=== PATIENT | male | born 1965 | race Caucasian/White ===

== ENCOUNTER 2025-10-01 08:14 | Inpatient (IN) | payer MEDICAID ==
[~2025-10-01] VITALS: Ht 165.1 cm; Wt 77.6 kg
[~2025-10-01 08:14] MED LIST: AMIT10TA13 PO; AMLO10TA80 PO; ASPI-1406 PO; ATOR-2 PO; CALC0.5C10 PO; CLOP75TA33 PO; GABA-1180 PO; HYDR100T11 PO; ISOS30TA91 PO; LEVO125T8 PO; METH-773 PO; NIFE90TA60 PO; SEVE800T8 MT; TELM80TA8 PO
[2025-10-01 09:02] LABS: BASOPHILS % 0.4 % (0.0-2.0); EOSINOPHILS % 0.2 % (0.0-5.0); HEMATOCRIT. 27.3 % (42.0-52.0); HEMOGLOBIN. 9.1 g/dL (14.0-18.0); LYMPHOCYTES % 7.5 % (20.0-50.0); MEAN PLATELET VOLUME 10.6 fl (7.4-10.4); MONOCYTES % 9.1 % (2.0-8.0); NEUTROPHILS % 82.8 % (40.0-76.0); PLATELET 84 x1000/uL (130-400); RED BLOOD CELL COUNT 2.70 mill/uL (4.7-6.1); RED CELL DISTRIBUTION WIDTH 17.4 % (11.6-14.6)
[2025-10-01] MEDS: DILTIAZEM HCL 5MG/ML 5ML VIAL IV ONE ×2 (09:05→09:45)
[2025-10-01] MEDS: ACETAMINOPHEN 325MG TABLET PO ONE (09:11)
[2025-10-01] MEDS: ONDANSETRON HCL 4MG/2ML INJ IV ONE (09:11)
[2025-10-01 09:26] LABS: UREA NITROGEN BLOOD 92 mg/dL (9-23)
[2025-10-01 09:27] LABS: PROTEIN TOTAL 6.6 g/dL (6.0-8.3)
[2025-10-01 09:28] LABS: ASPARTATE AMINOTRANSFERASE 51 IU/L (<34); BILIRUBIN DIRECT 0.2 mg/dL (<=3.0); BILIRUBIN TOTAL 0.4 mg/dL (0.1-1.0)
[2025-10-01] MEDS: DILTIAZEM HCL 60MG TABLET PO ONE (09:43)
[2025-10-01 09:58] LABS: CREATININE 11.4 mg/dL (0.6-1.3); TROPONIN I HIGH SENSITIVITY 2481 ng/L (3.0-53)
[2025-10-01] MEDS ORDERED: AZITHROMYCIN 500MG/250ML 250 ML IV STA (10:41)
[2025-10-01] MEDS: ENOXAPARIN 60MG/0.6ML SYR SUBCUT ONE (11:04)
[2025-10-01] MEDS: ASPIRIN 325MG TABLET PO ONE (11:05)
[2025-10-01] MEDS: CEFTRIAXONE 1GM/50ML 50 ML IV ONE (11:05)
[2025-10-01] MEDS: INSULIN REGULAR (HUMULIN R) 1000UNITS/10ML VIAL IV ONE (11:09)
[2025-10-01] MEDS: DEXTROSE 50% WATER 50ML SYRINGE IV ONE (11:11)
[2025-10-01] MEDS: AZITHROMYCIN 500MG/250ML 250 ML IV NR (12:23)
[2025-10-01 12:46] LABS: TROPONIN I HIGH SENSITIVITY 2579 ng/L (3.0-53)
[2025-10-01 15:21] LABS: HEPATITIS A AB IGM NEGATIVE (Negative)
[2025-10-01 15:22] LABS: HEPATITIS B CORE AB IGM NEGATIVE (Negative); HEPATITIS C AB NON REACTIVE (Neg) (Negative)
[2025-10-01 16:00] VITALS: BP 118/86; PULSE 61; RESP 18; TEMP 36.4; O2SAT 97
[2025-10-01] MEDS: IPRATROPIUM BROMIDE (0.02%) 0.5MG/2.5ML NEB HHN SCH (16:06)
[2025-10-01 18:40] VITALS: BP 105/75; RESP 18; TEMP 36.55848; O2SAT 97
[2025-10-01 20:00] VITALS: BP 121/68; PULSE 73; RESP 18; TEMP 36.6; TEMP 36.6404; O2SAT 94
[2025-10-01 23:30] VITALS: BP 121/75; PULSE 76; RESP 20; TEMP 36.61404; O2SAT 98
[2025-10-02] VITALS (14 sets, daily range): BP systolic 114–130; BP diastolic 69–75; PULSE 71–80; RESP 16–20; TEMP 36.2–36.9; O2SAT 94–98
[2025-10-02 08:04] LABS: BASOPHILS % 0.4 % (0.0-2.0); EOSINOPHILS % 3.7 % (0.0-5.0); HEMATOCRIT. 26.3 % (42.0-52.0); HEMOGLOBIN. 8.6 g/dL (14.0-18.0); LYMPHOCYTES % 8.1 % (20.0-50.0); MEAN PLATELET VOLUME 10.4 fl (7.4-10.4); MONOCYTES % 6.9 % (2.0-8.0); NEUTROPHILS % 80.9 % (40.0-76.0); PLATELET 89 x1000/uL (130-400); RED BLOOD CELL COUNT 2.63 mill/uL (4.7-6.1); RED CELL DISTRIBUTION WIDTH 16.9 % (11.6-14.6)
[2025-10-02 08:22] LABS: UREA NITROGEN BLOOD 60.0 mg/dL (9-23)
[2025-10-02] MEDS: SEVELAMER CARBONATE 800 MG TABLET PO SCH (08:43)
[2025-10-02] MEDS: ASPIRIN 81MG TABLET PO SCH (08:43)
[2025-10-02] MEDS: FOLIC ACID/VITAMIN B COMP W-C TABLET PO SCH (08:43)
[2025-10-02 09:19] LABS: CREATININE 7.9 mg/dL (0.6-1.3)
[2025-10-02 09:39] LABS: TROPONIN I HIGH SENSITIVITY 1908 ng/L (3.0-53)
[2025-10-02] MEDS ORDERED: CEFTRIAXONE 1GM/50ML 50 ML IV SCH (10:00)
[2025-10-02] MEDS ORDERED: NALOXONE HCL 0.4MG/ML VIAL IV PRN (10:15)
[2025-10-02] MEDS: CEFTRIAXONE 1GM/50ML 50 ML IV SCH (11:41)
[2025-10-02] MEDS: AZITHROMYCIN 500MG in D5W 250ML IV SCH (11:41)
[2025-10-02] MEDS ORDERED: AZITHROMYCIN 250 MG in DEXT 5% WATER 250 ML IV SCH (12:00)
[2025-10-02] MEDS: HYDROCODONE/ACETAMINOPHEN 5/325MG TABLET PO PRN (18:02)
[2025-10-02] MEDS: EPOETIN ALFA-EPBX 4,000 UNITS/ML VIAL SUBCUT SCH (20:50)
[2025-10-03] VITALS (17 sets, daily range): BP systolic 125–142; BP diastolic 69–82; PULSE 71–84; RESP 16–19; TEMP 36.2–36.9; O2SAT 91–100
[2025-10-04] VITALS (10 sets, daily range): BP systolic 137–156; BP diastolic 79–88; PULSE 72–85; RESP 16–20; TEMP 36.4–36.7; O2SAT 89–98
[2025-10-04] MEDS: LACTULOSE 20G/30ML UDC PO NR (11:14)
[2025-10-04 12:09] LABS: BG BASE EXCESS -1.7 mmol/L (-2.0-3.0); BG CARBOXYHEMOGLOBIN 2.1 % (0.5-1.5); BG DEOXYHEMOGLOBIN 8.4 % (0.0-5.0); BG FRACTION INSPIRED OXYGEN 21; BG HCO3 ACT 22.4 mmol/L (21.0-28.0); BG METHEMOGLOBIN 0.3 % (0.5-1.5); BG OXYGEN SATURATION 91.4 % (94.0-98.0); BG OXYHEMOGLOBIN 89.2 % (94.0-98.0); BG PCO2 35.0 mmHg (35.0-48.0); BG PH 7.424 (7.350-7.450); BG PO2 64.4 mmHg (83.0-108.0); BG SAMPLE SITE RIGHT BRACHIAL; BG TOTAL HEMOGLOBIN 8.7 g/dL (13.5-17.5); BG VENT MODE ROOM AIR
[2025-10-04] MEDS: IPRATROPIUM/ALBUTEROL 0.5-3(2.5)MG/3ML NEB HHN SCH (15:05)
[2025-10-04] MEDS: ATORVASTATIN CALCIUM 20MG TABLET PO SCH (20:16)
[2025-10-04] MEDS: GUAIFENESIN 600MG ER TABLET PO SCH (20:16)
[2025-10-04] MEDS: METOPROLOL TARTRATE 25MG TABLET PO SCH (20:17)
[2025-10-04] MEDS: LACTULOSE 20G/30ML UDC PO SCH (20:34)
[2025-10-04 23:31] LABS: BASOPHILS % 0.5 % (0.0-2.0); EOSINOPHILS % 3.4 % (0.0-5.0); HEMATOCRIT. 24.9 % (42.0-52.0); HEMOGLOBIN. 8.2 g/dL (14.0-18.0); LYMPHOCYTES % 13.9 % (20.0-50.0); MEAN PLATELET VOLUME 10.1 fl (7.4-10.4); MONOCYTES % 12.9 % (2.0-8.0); NEUTROPHILS % 69.3 % (40.0-76.0); PLATELET 59 x1000/uL (130-400); RED BLOOD CELL COUNT 2.51 mill/uL (4.7-6.1); RED CELL DISTRIBUTION WIDTH 16.5 % (11.6-14.6)
[2025-10-04 23:52] LABS: UREA NITROGEN BLOOD 75 mg/dL (9-23)
[2025-10-04 23:56] LABS: CREATININE 9.1 mg/dL (0.6-1.3)
[2025-10-05] VITALS (18 sets, daily range): BP systolic 137–165; BP diastolic 70–97; PULSE 71–89; RESP 16–20; TEMP 36.1–36.8; O2SAT 95–97
[2025-10-05 07:12] LABS: BASOPHILS % 0.7 % (0.0-2.0); EOSINOPHILS % 3.2 % (0.0-5.0); HEMATOCRIT. 24.8 % (42.0-52.0); HEMOGLOBIN. 8.3 g/dL (14.0-18.0); LYMPHOCYTES % 14.7 % (20.0-50.0); MEAN PLATELET VOLUME 9.8 fl (7.4-10.4); MONOCYTES % 14.8 % (2.0-8.0); NEUTROPHILS % 66.6 % (40.0-76.0); PLATELET 58 x1000/uL (130-400); RED BLOOD CELL COUNT 2.49 mill/uL (4.7-6.1); RED CELL DISTRIBUTION WIDTH 16.2 % (11.6-14.6)
[2025-10-05 07:20] LABS: UREA NITROGEN BLOOD 75.0 mg/dL (9-23)
[2025-10-05 07:28] LABS: CREATININE 9.4 mg/dL (0.6-1.3)
[2025-10-05] MEDS: AZITHROMYCIN 500 MG TABLET PO SCH (08:27)
[2025-10-06] VITALS (9 sets, daily range): BP systolic 139–159; BP diastolic 75–89; PULSE 70–88; RESP 18–24; TEMP 36.5–37.6; O2SAT 94–99
[2025-10-06] MEDS: HYDROCODONE/ACETAMINOPHEN 10/325MG TABLET PO PRN (00:07)
[2025-10-06] MEDS: ZOLPIDEM TARTRATE 5MG TABLET PO PRN (00:07)
[2025-10-06 06:04] LABS: UREA NITROGEN BLOOD 37.0 mg/dL (9-23)
[2025-10-06 06:08] LABS: CREATININE 6.3 mg/dL (0.6-1.3)
[2025-10-06 06:58] LABS: BASOPHILS % 0.7 % (0.0-2.0); EOSINOPHILS % 4.0 % (0.0-5.0); HEMATOCRIT. 24.1 % (42.0-52.0); HEMOGLOBIN. 8.0 g/dL (14.0-18.0); LYMPHOCYTES % 20.6 % (20.0-50.0); MEAN PLATELET VOLUME 8.7 fl (7.4-10.4); MONOCYTES % 14.7 % (2.0-8.0); NEUTROPHILS % 60.0 % (40.0-76.0); PLATELET 56 x1000/uL (130-400); RED BLOOD CELL COUNT 2.41 mill/uL (4.7-6.1); RED CELL DISTRIBUTION WIDTH 16.4 % (11.6-14.6)
[2025-10-06] MEDS ORDERED: LEVO250T74 MT (13:11)
== END 2025-10-06 17:30 | disposition home or self-care (01) | DRG 190 ==
LOC: ER 08:14 → EDBEDREQTM 10:38 → EDBEDREQSVC 10:38 → EDBEDREQ 10:38 → EDBEDREQSVC 15:21 → 7WST 18:36
PROVIDERS: ADMIT Internal Medicine; ATTEND Internal Medicine
PROC: 5A1D70Z Performance of Urinary Filtration, Intermittent, Less than 6 Hours Per Day (ICD-10-PCS; principal; 2025-10-01)
PROC: 5A1D70Z Performance of Urinary Filtration, Intermittent, Less than 6 Hours Per Day (ICD-10-PCS; 2025-10-03)
PROC: 5A1D70Z Performance of Urinary Filtration, Intermittent, Less than 6 Hours Per Day (ICD-10-PCS; 2025-10-05)
DX: I21.4 Non-ST elevation (NSTEMI) myocardial infarction (principal); I13.2 Hypertensive heart and chronic kidney disease with heart failure and with stage 5 chronic kidney disease, or end stage renal disease; J18.9 Pneumonia, unspecified organism; N18.6 End stage renal disease; I50.23 Acute on chronic systolic (congestive) heart failure; Z95.1 Presence of aortocoronary bypass graft; Z99.2 Dependence on renal dialysis; Z79.01 Long term (current) use of anticoagulants; E11.22 Type 2 diabetes mellitus with diabetic chronic kidney disease; D64.9 Anemia, unspecified; I35.1 Nonrheumatic aortic (valve) insufficiency; I48.0 Paroxysmal atrial fibrillation; I25.10 Atherosclerotic heart disease of native coronary artery without angina pectoris; K40.90 Unilateral inguinal hernia, without obstruction or gangrene, not specified as recurrent; E87.5 Hyperkalemia; R29.810 Facial weakness; Z95.2 Presence of prosthetic heart valve; Z95.5 Presence of coronary angioplasty implant and graft
CPT/HCPCS: 36415; 36600; 71045; 74176; 80048; 80076; 82375; 82805; 83735; 83880; 84145; 84484; 85025; 86705; 86709; 87340; 90935; 93005; 93306; 94070; 94640; 94664; 98960; 99291; J0456; J0696; J0885; J1650; J1815; J2405; J3490